=== PATIENT | female | born 1950 | race Caucasian/White ===

== ENCOUNTER 2018-06-10 06:38 | Day surgery (SDC) | payer MEDICARE, OTHER ==
[2018-06-10] MEDS ORDERED: LIDOCAINE HCL 1% MPF 30 SOL ONE (07:07)
[2018-06-10] MEDS ORDERED: PROPOFOL 500 MG/50 ML EMU IV ONE (07:16)
[2018-06-10] MEDS ORDERED: MIDAZOLAM 2 MG/2 ML SOL ONE (07:16)
[2018-06-10] MEDS ORDERED: FENTANYL 100MCG/2ML SOL ONE (07:17)
[2018-06-10] MEDS: BUPIVACAINE HCL 0.5% MPF 10 ML SOL ONE ×3 (07:45→08:05)
[2018-06-10] MEDS ORDERED: DEXAMETHASONE 20 MG/5 ML (4 MG/ML SOL) ONE (08:01)
[2018-06-10] MEDS ORDERED: ONDANSETRON HCL 4 MG/2 ML SOL ONE (08:01)
[2018-06-10] MEDS ORDERED: METOCLOPRAMIDE HYDROCHLORIDE 5 MG/ML SOL ONE (08:01)
[2018-06-10] MEDS ORDERED: KETOROLAC TROMETHAMINE 30 MG/ML SOL ONE (08:11)
[2018-06-10 08:56] VITALS: BP 148/77; PULSE 52; RESP 16; TEMP 97; O2SAT 97
== END 2018-06-10 09:30 | disposition home or self-care (01) | DRG 607 ==
LOC: SURG 06:38
PROVIDERS: ATTEND Podiatrist
DX: R22.42 Localized swelling, mass and lump, left lower limb (principal)
CPT/HCPCS: J1100; J1885; J2250; J2405; J2765; J3010; L3260; A6402; J2001; J2704